=== PATIENT | female | born 1965 | race Two or more races ===

== ENCOUNTER 2018-03-22 13:10 | Outpatient (CLI) | payer OTHER ==
[~2018-03-22 13:10] MED LIST: CIPRO500 MG PO; COLACE100 MG PO; DOXYCYCLINE HY100 M2 PO; KETO10TA2 PO; NABUMETONE500 MG PO; OXYC1TAB9 PO; PERCOCET 5/3251 TAB PO; ZOCOR20 MG
== END 2018-03-22 13:22 | disposition home or self-care (01) ==
LOC: MAMO-SONO 13:10
DX: Z12.31 Encounter for screening mammogram for malignant neoplasm of breast (principal)

== ENCOUNTER → 2018-04-19 | Emergency (ER) | payer OTHER ==
[~2018-04-19] VITALS: Ht 162.6 cm; Wt 117.9 kg
[~2018-04-19] MED LIST changes: +ENALAPRIL MALEA10 MG
== END | disposition home or self-care (01) ==
LOC: ER 18:25
DX: S80.02XA Contusion of left knee, initial encounter (principal); S00.83XA Contusion of other part of head, initial encounter; W18.39XA Other fall on same level, initial encounter; Y93.89 Activity, other specified; Y92.89 Other specified places as the place of occurrence of the external cause; Y99.8 Other external cause status

== ENCOUNTER 2019-09-13 12:34 | Outpatient (CLI) | payer OTHER | END 2019-09-13 12:39 | disposition home or self-care (01) | LOC: MAMO-SONO 12:34 | DX: Z12.31 Encounter for screening mammogram for malignant neoplasm of breast (principal); Z87.898 Personal history of other specified conditions; N64.4 Mastodynia; M25.561 Pain in right knee; M25.562 Pain in left knee ==

== ENCOUNTER 2021-09-30 13:37 | Outpatient (CLI) | payer OTHER | END 2021-09-30 14:27 | disposition home or self-care (01) | LOC: MAMO-SONO 13:37 | DX: R92.2 Inconclusive mammogram (principal) ==

== ENCOUNTER 2022-04-07 11:15 | Outpatient (CLI) | payer OTHER | END 2022-04-07 11:19 | disposition home or self-care (01) | LOC: MAMO-SONO 11:15 | PROVIDERS: ATTEND General Practice | DX: Z12.31 Encounter for screening mammogram for malignant neoplasm of breast (principal); N64.9 Disorder of breast, unspecified ==